=== PATIENT | female | born 1995 | race African-American/Black ===

== ENCOUNTER 2022-01-11 20:03 | Emergency (ER) | payer OTHER ==
[2022-01-11 20:29] LABS: #Eosinphils 0.2 10x3/uL (0.0-0.5); #Monocytes 0.7 10x3/uL (0.0-1.1); #Neutrophils 7.9 10x3/uL (1.5-8.4); %Basophils 0.4 % (0.0-2.0); %Eosinophils 2.1 % (0.0-6.0); %Lymphocytes 9.2 % (18.0-47.0); %Monocytes 7.3 % (0.0-10.0); %Neutrophils 80.8 % (40.0-75.0); Hemoglobin 9.5 g/dL (12.0-15.5); Mean Corpuscular Volume 87.6 fl (81.6-98.3); Mean Platelet Volume 11.2 fl (7.4-10.4); Platelet Count 191 10x3/uL (150-450); RBC Distribution Width 14.6 % (11.5-14.5); Red Blood Cell (RBC) Count 3.39 10x6/uL (3.90-5.03); White Blood Cell (WBC) Count 9.8 10x3/uL (3.5-10.5)
[2022-01-11 20:38] LABS: ALT (SGPT) 18 U/L (8-55); AST (SGOT) 32 U/L (5-34); Albumin 4.3 g/dL (3.5-5.0); Alkaline Phosphatase 43 U/L (40-110); Anion Gap 15 mmol/L (10-20); BUN (Urea Nitrogen) 22 mg/dL (7.0-18.7); Bilirubin, Total 0.8 mg/dL (0.2-1.2); Calc. Creatinine Clearance 0 mL/min (70-130); Calcium 10.1 mg/dL (7.8-10.44); Carbon Dioxide 30 mmol/L (22-29); Chloride 96 mmol/L (98-107); Estimated GFR 8; Globulin 3.6 g/dL (2.4-3.5); Glucose 94 mg/dL (70-105); Lipase 82 U/L (8-78); Potassium 3.8 mmol/L (3.5-5.1); Protein, Total 7.9 g/dL (6.0-8.3); Sodium 137 mmol/L (136-145)
[2022-01-11 20:47] LABS: Bilirubin Neg (Negative); Blood, Urine 250 (Negative); Clarity Slightly Cloudy (Clear); Glucose, Urine (Dipstick) Normal (Negative); Ketone, Urine Negative (Negative); Leukocyte 100 (Negative); Nitrite Negative (Negative); Protein, Urine (Dipstick) 500 mg/dl (Neg-Trace); Specific Gravity, Urine 1.015 (1.002-1.036); Urobilinogen Normal mg/dL (Less than 2)
[2022-01-11 20:52] LABS: Bacteria/HPF 4+ HPF (None Seen); Mucous/LPF 2+ LPF (<2+); RBC/HPF 21-50 HPF (0-3)
[2022-01-11] MEDS ORDERED: Morphine 2 MG/ML VIAL ONE (21:17)
[2022-01-11 22:08] LABS: SARS-CoV-2 NAA Rapid Test Not Detected (NotDetected)
== END 2022-01-11 21:37 | disposition short-term general hospital (02) ==
LOC: CSHERS 20:03
DX: N28.89 Other specified disorders of kidney and ureter (principal); I12.0 Hypertensive chronic kidney disease with stage 5 chronic kidney disease or end stage renal disease; N18.6 End stage renal disease; Z20.822 Contact with and (suspected) exposure to COVID-19; Z79.899 Other long term (current) drug therapy
CPT/HCPCS: 74176; 80053; 83690; 85025; 93005; 96374; 99285; J2270; U0002; 81003; 81015

== ENCOUNTER 2022-04-23 04:23 | Inpatient (IN) | payer OTHER, MEDICAID ==
[2022-04-23] MEDS ORDERED: Guaifenesin DM 100-10/5 ML UDCUP PO PRN (05:03)
[2022-04-23] MEDS ORDERED: Senokot S 8.6-50 MG TAB PO PRN (05:03)
[2022-04-23] MEDS ORDERED: Ondansetron PF 4 MG/2 ML Vial IVP PRN (05:03)
[2022-04-23] MEDS ORDERED: Acetaminophen 325 MG TAB PO PRN (05:03)
[2022-04-23 05:09] VITALS: BMI 42.9
[2022-04-23] MEDS: niCARdipine 25 MG in Sodium Chloride 0.9% 250 ML 250 ML IVPB SCH ×3 (05:45→13:25)
[2022-04-23 06:10] LABS: BHCG - Serum Negative (NEGATIVE); Pregs Control Background? CLEAR/WHITE (CLR/WHITE); Pregs Control Bar Appear? YES (CONTROL BAR)
[2022-04-23 06:42] LABS: CKMB 5.6 ng/mL (0-6.6)
[2022-04-23 06:44] LABS: SARS-CoV-2 NAA Rapid Test Not Detected (NotDetected)
[2022-04-23] MEDS: hydrALAZINE 25 MG TAB PO SCH ×2 (07:42→14:52)
[2022-04-23] MEDS ORDERED: Heparin 10,000 UNITS/ 10 ML VIAL SLOW IVP PRN (08:19)
[2022-04-23] MEDS ORDERED: Heparin 5,000 UNITS/ML VIAL SC SCH (09:00)
[2022-04-23] MEDS ORDERED: Labetalol HCl 200 MG TAB PO SCH ×2 (09:00→15:00)
[2022-04-23 10:47] LABS: CKMB 6.3 ng/mL (0-6.6)
[2022-04-23] MEDS ORDERED: NIFEdipine XL 30 MG TAB PO SCH (13:00)
[2022-04-23 18:52] VITALS: BP 145/87; TEMP 97.7
== END 2022-04-23 18:30 | disposition left against medical advice (07) | DRG 682 ==
LOC: CSHTELE 04:23 → CSHIMCU 05:39
PROVIDERS: ADMIT Student in an Organized Health Care Education/Training Program; ATTEND Family Medicine
PROC: 5A09357 Assistance with Respiratory Ventilation, Less than 24 Consecutive Hours, Continuous Positive Airway Pressure (ICD-10-PCS; principal; 2022-04-23)
PROC: 5A1D70Z Performance of Urinary Filtration, Intermittent, Less than 6 Hours Per Day (ICD-10-PCS; 2022-04-23)
DX: I12.0 Hypertensive chronic kidney disease with stage 5 chronic kidney disease or end stage renal disease (principal); J96.01 Acute respiratory failure with hypoxia; N18.6 End stage renal disease; I16.1 Hypertensive emergency; D63.1 Anemia in chronic kidney disease; R77.8 Other specified abnormalities of plasma proteins; E87.70 Fluid overload, unspecified; Z91.15 Patient's noncompliance with renal dialysis; Z99.2 Dependence on renal dialysis; Z79.899 Other long term (current) drug therapy; Z98.890 Other specified postprocedural states; Z90.49 Acquired absence of other specified parts of digestive tract; Z82.49 Family history of ischemic heart disease and other diseases of the circulatory system
CPT/HCPCS: 36415; 82553; 84484; 84703; 90935; 93005; 93010; 93306; 94660; 94760; G0257; J1644; J7050; U0002

== ENCOUNTER 2022-05-13 15:45 | Emergency (ER) | payer OTHER ==
[2022-05-13] MEDS ORDERED: Ondansetron ODT 4 MG TAB ONE (16:32)
[2022-05-13] MEDS ORDERED: hydrALAZINE 25 MG TAB ONE (16:33)
[2022-05-13] MEDS ORDERED: Labetalol HCl 100 MG TAB PO SCH (17:00)
== END 2022-05-13 19:01 | disposition home or self-care (01) ==
LOC: CSHERS 15:45
DX: J11.1 Influenza due to unidentified influenza virus with other respiratory manifestations (principal); I31.39 Other pericardial effusion (noninflammatory); I12.0 Hypertensive chronic kidney disease with stage 5 chronic kidney disease or end stage renal disease; N18.6 End stage renal disease; Z99.2 Dependence on renal dialysis
CPT/HCPCS: 71045; 71250; Q0162

== ENCOUNTER 2022-05-23 09:47 | Emergency (ER) | payer OTHER ==
[2022-05-23] MEDS ORDERED: traMADol HCl 50 MG TAB ONE (10:39)
== END 2022-05-23 11:54 | disposition home or self-care (01) ==
LOC: CSHERS 09:47
DX: S83.92XA Sprain of unspecified site of left knee, initial encounter (principal); I12.0 Hypertensive chronic kidney disease with stage 5 chronic kidney disease or end stage renal disease; N18.6 End stage renal disease; Z99.2 Dependence on renal dialysis; X50.0XXA Overexertion from strenuous movement or load, initial encounter

== ENCOUNTER 2022-07-01 12:14 | Emergency (ER) | payer OTHER ==
[2022-07-01 13:33] LABS: #Eosinphils 0.2 10x3/uL (0.0-0.5); #Monocytes 0.7 10x3/uL (0.0-1.1); #Neutrophils 6.2 10x3/uL (1.5-8.4); %Basophils 0.4 % (0.0-2.0); %Eosinophils 2.8 % (0.0-6.0); %Lymphocytes 13.4 % (18.0-47.0); %Monocytes 7.8 % (0.0-10.0); %Neutrophils 75.1 % (40.0-75.0); Hemoglobin 7.9 g/dL (12.0-15.5); Mean Corpuscular Hemoglobin 26.7 pg (27.0-33.0); Mean Corpuscular Volume 86.1 fl (81.6-98.3); Mean Platelet Volume 11.4 fl (7.4-10.4); Platelet Count 188 10x3/uL (150-450); RBC Distribution Width 15.2 % (11.5-14.5); Red Blood Cell (RBC) Count 2.96 10x6/uL (3.90-5.03); White Blood Cell (WBC) Count 8.3 10x3/uL (3.5-10.5)
[2022-07-01 13:39] LABS: ALT (SGPT) 7 U/L (8-55); AST (SGOT) 16 U/L (5-34); Albumin 3.5 g/dL (3.5-5.0); Alkaline Phosphatase 34 U/L (40-110); Anion Gap 21 mmol/L (10-20); BUN (Urea Nitrogen) 66 mg/dL (7.0-18.7); Bilirubin, Total 0.5 mg/dL (0.2-1.2); Calc. Creatinine Clearance 0 mL/min (70-130); Calcium 10.4 mg/dL (7.8-10.44); Carbon Dioxide 25 mmol/L (22-29); Chloride 99 mmol/L (98-107); Estimated GFR 3; Globulin 4.1 g/dL (2.4-3.5); Glucose 92 mg/dL (70-105); Magnesium 2.1 mg/dL (1.6-2.6); Potassium 4.5 mmol/L (3.5-5.1); Protein, Total 7.6 g/dL (6.0-8.3); Sodium 140 mmol/L (136-145)
[2022-07-01 14:04] LABS: SARS-CoV-2 NAA Rapid Test Not Detected (NotDetected)
== END 2022-07-01 23:30 | disposition home or self-care (01) ==
LOC: CSHERS 12:14
DX: N17.9 Acute kidney failure, unspecified (principal); I12.0 Hypertensive chronic kidney disease with stage 5 chronic kidney disease or end stage renal disease; N18.6 End stage renal disease; Z20.822 Contact with and (suspected) exposure to COVID-19
CPT/HCPCS: 0240U; 71045; 80053; 83735; 85025; 93005; 99285; 90935; G0257

== ENCOUNTER 2022-07-30 19:03 | Inpatient (IN) | payer OTHER ==
[2022-07-30 19:46] LABS: #Basophils 0.1 10x3/uL (0.0-0.2); #Eosinphils 0.1 10x3/uL (0.0-0.5); #Monocytes 0.6 10x3/uL (0.0-1.1); #Neutrophils 6.3 10x3/uL (1.5-8.4); %Basophils 0.6 % (0.0-2.0); %Eosinophils 1.4 % (0.0-6.0); %Lymphocytes 12.8 % (18.0-47.0); %Neutrophils 77.8 % (40.0-75.0); Hemoglobin 7.8 g/dL (12.0-15.5); Mean Corpuscular HGB CONC 31.5 g/dL (32.0-36.0); Mean Corpuscular Hemoglobin 26.4 pg (27.0-33.0); Mean Corpuscular Volume 84.1 fl (81.6-98.3); Platelet Count 163 10x3/uL (150-450); RBC Distribution Width 16.4 % (11.5-14.5); Red Blood Cell (RBC) Count 2.95 10x6/uL (3.90-5.03); White Blood Cell (WBC) Count 8.1 10x3/uL (3.5-10.5)
[2022-07-30 20:06] LABS: ALT (SGPT) 16 U/L (8-55); AST (SGOT) 21 U/L (5-34); Albumin 3.9 g/dL (3.5-5.0); Alkaline Phosphatase 38 U/L (40-110); Anion Gap 26 mmol/L (10-20); BUN (Urea Nitrogen) 103 mg/dL (7.0-18.7); Bilirubin, Total 0.6 mg/dL (0.2-1.2); Calc. Creatinine Clearance 0 mL/min (70-130); Calcium 9.5 mg/dL (7.8-10.44); Carbon Dioxide 20 mmol/L (22-29); Chloride 98 mmol/L (98-107); Estimated GFR 2; Globulin 3.1 g/dL (2.4-3.5); Glucose 95 mg/dL (70-105); Potassium 4.3 mmol/L (3.5-5.1); Sodium 140 mmol/L (136-145)
[2022-07-30 20:34] LABS: CKMB 4.4 ng/mL (0-6.6)
[2022-07-30] MEDS ORDERED: Aspirin Chewable 81 MG TAB ONE (20:57)
[2022-07-30] MEDS ORDERED: Nitroglycerin 2% Ointment 1 INCH/1 GM Packet ONE (20:57)
[2022-07-30] MEDS ORDERED: Senokot S 8.6-50 MG TAB PO PRN (21:15)
[2022-07-30] MEDS ORDERED: Calcium Carbonate 500 MG ChewTAB PO PRN (21:15)
[2022-07-30] MEDS ORDERED: Guaifenesin DM 100-10/5 ML UDCUP PO PRN (21:15)
[2022-07-30] MEDS ORDERED: Ondansetron PF 4 MG/2 ML Vial IVP PRN (21:15)
[2022-07-30] MEDS ORDERED: HYDROcodone/Acetaminophen 5/325 mg Tablet PO PRN (21:15)
[2022-07-30] MEDS ORDERED: Acetaminophen 325 MG TAB PO PRN (21:15)
[2022-07-30] MEDS ORDERED: Furosemide 40 MG/4 ML VIAL ONE (21:18)
[2022-07-30 22:05] LABS: Pregnancy Test - Urine (BHCG) Negative (Negative); Pregu Control Background? CLEAR/WHITE (CLR/WHITE); Pregu Control Bar Appear? YES (CONTROL BAR)
[2022-07-30 22:06] LABS: SARS-CoV-2 NAA Rapid Test Not Detected (NotDetected)
[2022-07-31 01:17] VITALS: BMI 41.1
[2022-07-31] MEDS ORDERED: FLU VACC QS2022-23(6MOS UP)/PF 60 MCG/0.5 ML SYRINGE IM ONE (02:00)
[2022-07-31 06:26] LABS: Anion Gap 22 mmol/L (10-20); BUN (Urea Nitrogen) 67 mg/dL (7.0-18.7); Calc. Creatinine Clearance 10 mL/min (70-130); Calcium 9.4 mg/dL (7.8-10.44); Carbon Dioxide 24 mmol/L (22-29); Chloride 97 mmol/L (98-107); Estimated GFR 3; Glucose 136 mg/dL (70-105); Potassium 3.5 mmol/L (3.5-5.1); Sodium 139 mmol/L (136-145)
[2022-07-31 07:05] LABS: CKMB 5.2 ng/mL (0-6.6)
[2022-07-31] MEDS ORDERED: hydrALAZINE 25 MG TAB PO SCH (09:00)
[2022-07-31] MEDS ORDERED: Labetalol HCl 200 MG TAB PO SCH (09:00)
[2022-07-31] MEDS: hydrALAZINE 25 MG TAB PO SCH ×3 (09:00→20:43)
[2022-07-31] MEDS: Labetalol HCl 100 MG TAB PO SCH ×3 (09:00→20:43)
[2022-07-31] MEDS: Folic Acid/Vit B Comp W-C PO SCH (09:00)
[2022-07-31] MEDS: Heparin 5,000 UNITS/ML VIAL SC SCH ×3 (09:00→20:42)
[2022-07-31] MEDS ORDERED: Dextrose 5% in Water 1,000 ML IV PRN (17:42)
[2022-07-31] MEDS ORDERED: Dextrose 50% Abboject 50 ML SYRINGE SLOW IVP PRN ×2 (17:42→19:01)
[2022-07-31] MEDS ORDERED: HumaLOG 300 UNITS/3 ML VIAL SC PRN ×2 (17:42)
[2022-07-31 17:49] LABS: Base Excess (BEa) 2.5 mEq/L (-2.0 to +3.0); CO2 Tension 47.7 mmHg (35.0-45.0); Critical Notified Time 1735; Hemoglobin (Hb) 9.4 g/dL (12.0-16.0); O2 Tension (PaO2), arterial 163.4 mmHg (80.0-100.0); pH, Arterial 7.39 (7.35-7.45)
[2022-07-31 17:50] LABS: Calcium, Ionized (arterial) 1.09 mmol/L (1.12-1.30); Carboxyhemoglobin (COHb) 1.3 gm% (0.0-3.0)
[2022-07-31 17:51] LABS: ALV-art Gradient 26.525 mmHg (0-20); Puncture Site OTHER
[2022-07-31 17:52] LABS: Draw Time: 1725; RapidComm Collect By CBN
[2022-07-31] MEDS ORDERED: Naloxone HCl 0.4 mg/ml Vial IV SCH (18:00)
[2022-07-31 18:31] LABS: Mean Corpuscular HGB CONC 29.1 g/dL (32.0-36.0); Mean Corpuscular Hemoglobin 25.9 pg (27.0-33.0); Mean Platelet Volume 11.2 fl (7.4-10.4); Platelet Count 163 10x3/uL (150-450); RBC Distribution Width 16.5 % (11.5-14.5); Red Blood Cell (RBC) Count 3.09 10x6/uL (3.90-5.03); White Blood Cell (WBC) Count 7.6 10x3/uL (3.5-10.5)
[2022-07-31 18:38] LABS: ALT (SGPT) 17 U/L (8-55); AST (SGOT) 24 U/L (5-34); Albumin 3.8 g/dL (3.5-5.0); Alkaline Phosphatase 37 U/L (40-110); Anion Gap 18 mmol/L (10-20); BUN (Urea Nitrogen) 34 mg/dL (7.0-18.7); Bilirubin, Total 0.6 mg/dL (0.2-1.2); Calc. Creatinine Clearance 16 mL/min (70-130); Calcium 9.2 mg/dL (7.8-10.44); Carbon Dioxide 28 mmol/L (22-29); Chloride 99 mmol/L (98-107); Estimated GFR 6; Globulin 3.7 g/dL (2.4-3.5); Glucose 68 mg/dL (70-105); Potassium 4.4 mmol/L (3.5-5.1); Protein, Total 7.5 g/dL (6.0-8.3); Sodium 141 mmol/L (136-145)
[2022-07-31 18:52] LABS: MDiff Complete? YES
[2022-07-31 19:02] LABS: Monocytes 17 % (0-10)
[2022-07-31 19:03] LABS: Lymphocytes 14 % (21-51); Neutrophil 67 % (42-75)
[2022-07-31 19:05] LABS: Eosinophils 2 % (0-10)
[2022-07-31 19:08] LABS: Hypochromia SLIGHT = 6-15 cells (100X) (0-5/hpf); Platelet Morphology Comment Appears Adequate
[2022-07-31] MEDS ORDERED: Dextrose 10% in Water 250 ML IVPB SCH (20:00)
[2022-07-31] MEDS ORDERED: Dextrose 50% Abboject 50 ML SYRINGE SLOW IVP SCH (20:00)
[2022-07-31] MEDS: Ondansetron ODT 4 MG TAB PO PRN (22:37)
[2022-08-01 04:31] LABS: ALV-art Gradient 21.575 mmHg (0-20); Base Excess (BEa) 4.1 mEq/L (-2.0 to +3.0); CO2 Tension 52.9 mmHg (35.0-45.0); Calcium, Ionized (arterial) 1.15 mmol/L (1.12-1.30); Carboxyhemoglobin (COHb) 0.6 gm% (0.0-3.0); Critical Notified By: CP.PH; Hemoglobin (Hb) 8.4 g/dL (12.0-16.0); O2 Tension (PaO2), arterial 126.2 mmHg (80.0-100.0); Potassium - ABG Lab 4.8 mmol/L (3.70-5.30); Puncture Site RRA; RapidComm Collect By CP.PH; pH, Arterial 7.37 (7.35-7.45)
[2022-08-01 05:01] LABS: Anion Gap 19 mmol/L (10-20); BUN (Urea Nitrogen) 37 mg/dL (7.0-18.7); Calc. Creatinine Clearance 15 mL/min (70-130); Carbon Dioxide 27 mmol/L (22-29); Chloride 99 mmol/L (98-107); Estimated GFR 5; Glucose 101 mg/dL (70-105); Sodium 140 mmol/L (136-145)
[2022-08-01 07:26] LABS: Amphetamine Not Detected (NotDetected); Barbiturates Screen Not Detected (NotDetected); Benzodiazepine Screen Not Detected (NotDetected); Cocaine Metabolite Screen Not Detected (NotDetected); Methadone Not Detected (NotDetected); Methamphetamine Not Detected (NotDetected); Opiate Screen Not Detected (NotDetected); Oxycodone Screen Not Detected (NotDetected); Phencyclidine (PCP) Not Detected (NotDetected); THC/Cannabinoid Screen Not Detected (NotDetected); Tricyclic Screen Not Detected (NotDetected)
[2022-08-01] MEDS: Labetalol HCl 100 MG TAB PO SCH ×3 (07:38→21:31)
[2022-08-01] MEDS: hydrALAZINE 25 MG TAB PO SCH ×3 (07:38→21:31)
[2022-08-01] MEDS: Heparin 5,000 UNITS/ML VIAL SC SCH ×3 (07:39→21:31)
[2022-08-01] MEDS: Bumetanide 1 MG/4 ML VIAL IVP SCH (10:28)
[2022-08-01] MEDS: Folic Acid/Vit B Comp W-C PO SCH (10:39)
[2022-08-01] MEDS: Ondansetron ODT 4 MG TAB PO PRN (22:11)
[2022-08-02] MEDS ORDERED: diphenhydrAMINE 25 MG CAP PO SCH (01:30)
[2022-08-02 03:39] LABS: Actual Bicarbonate (HCO3v) 30 mEq/L (22-28); Base Excess 4.8 mEq/L (-2 - +2); Calcium, Ionized (venous) 1.13 mmol/L (1.16-1.32); Chloride (VBG) 95 mmol/L (98-106); Critical Notified By: CP.PH; Hemoglobin (Hb) 8.2 g/dL (11.7-15.5); Potassium (VBG) 4.51 mmol/L (3.70-5.30); Puncture Site Other Site; Sodium 135.5 mmol/L (133-146); pH (venous) 7.41 (7.32-7.43)
[2022-08-02 03:46] LABS: #Eosinphils 0.1 10x3/uL (0.0-0.5); #Monocytes 0.7 10x3/uL (0.0-1.1); #Neutrophils 4.5 10x3/uL (1.5-8.4); %Basophils 0.5 % (0.0-2.0); %Eosinophils 1.1 % (0.0-6.0); %Lymphocytes 16.4 % (18.0-47.0); %Monocytes 10.5 % (0.0-10.0); %Neutrophils 71.2 % (40.0-75.0); Hemoglobin 7.3 g/dL (12.0-15.5); Mean Corpuscular HGB CONC 29.4 g/dL (32.0-36.0); Mean Corpuscular Hemoglobin 26.2 pg (27.0-33.0); Mean Corpuscular Volume 88.9 fl (81.6-98.3); Mean Platelet Volume 12.1 fl (7.4-10.4); Platelet Count 162 10x3/uL (150-450); RBC Distribution Width 16.7 % (11.5-14.5); Red Blood Cell (RBC) Count 2.79 10x6/uL (3.90-5.03); White Blood Cell (WBC) Count 6.3 10x3/uL (3.5-10.5)
[2022-08-02 04:01] LABS: Anion Gap 21 mmol/L (10-20); BUN (Urea Nitrogen) 45 mg/dL (7.0-18.7); Calc. Creatinine Clearance 12 mL/min (70-130); Calcium 9.3 mg/dL (7.8-10.44); Carbon Dioxide 27 mmol/L (22-29); Chloride 95 mmol/L (98-107); Estimated GFR 4; Glucose 97 mg/dL (70-105); Potassium 4.6 mmol/L (3.5-5.1); Sodium 138 mmol/L (136-145)
[2022-08-02 04:08] LABS: Anisocytosis SLIGHT = 6-15 cells (100X) (0-5/hpf)
[2022-08-02 04:09] LABS: Hypochromia SLIGHT = 6-15 cells (100X) (0-5/hpf); Platelet Morphology Comment Appears Adequate
[2022-08-02] MEDS: hydrALAZINE 25 MG TAB PO SCH ×2 (09:42→15:19)
[2022-08-02] MEDS: Heparin 5,000 UNITS/ML VIAL SC SCH ×2 (09:42→15:19)
[2022-08-02] MEDS: Folic Acid/Vit B Comp W-C PO SCH (09:43)
[2022-08-02] MEDS: Labetalol HCl 100 MG TAB PO SCH ×2 (09:43→15:19)
[2022-08-02] MEDS: Bumetanide 1 MG/4 ML VIAL IVP SCH (09:43)
[2022-08-02 16:14] VITALS: BP 121/76; TEMP 98.3
== END 2022-08-02 17:00 | disposition home or self-care (01) | DRG 640 ==
LOC: CSHERS 19:03 → INTOOBSV 22:25 → CSHTELE 22:25 → OBSVTOIN 07-31 17:39 → CSHIMCU 07-31 18:31
PROVIDERS: ADMIT Student in an Organized Health Care Education/Training Program; ATTEND Family Medicine
PROC: 5A09457 Assistance with Respiratory Ventilation, 24-96 Consecutive Hours, Continuous Positive Airway Pressure (ICD-10-PCS; 2022-07-31)
PROC: 5A1D70Z Performance of Urinary Filtration, Intermittent, Less than 6 Hours Per Day (ICD-10-PCS; principal; 2022-08-02)
DX: E87.70 Fluid overload, unspecified (principal); G93.41 Metabolic encephalopathy; N18.6 End stage renal disease; J96.90 Respiratory failure, unspecified, unspecified whether with hypoxia or hypercapnia; I12.0 Hypertensive chronic kidney disease with stage 5 chronic kidney disease or end stage renal disease; N25.81 Secondary hyperparathyroidism of renal origin; Z20.822 Contact with and (suspected) exposure to COVID-19; I16.0 Hypertensive urgency; D63.1 Anemia in chronic kidney disease; G47.33 Obstructive sleep apnea (adult) (pediatric); D63.8 Anemia in other chronic diseases classified elsewhere; Z99.2 Dependence on renal dialysis; Z90.49 Acquired absence of other specified parts of digestive tract; Z98.890 Other specified postprocedural states; Z79.899 Other long term (current) drug therapy; Z91.15 Patient's noncompliance with renal dialysis
CPT/HCPCS: 36415; 36416; 36600; 70450; 71045; 71250; 80048; 80053; 80306; 80307; 81025; 82533; 82553; 82805; 83605; 83880; 84443; 84484; 85025; 90935; 93005; 94660; 94760; 96374; G0257; G0378; J1644; J1940; J2405; J3490; Q0162; U0002